=== PATIENT | female | born 1975 | race Two or more races ===

== ENCOUNTER 2017-04-04 18:06 | Emergency (ER) | payer OTHER ==
--- NOTE | 2017-04-04 18:23 | EDPHY ---
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 Also complains of sinus congestion. Patient tells me for the past month she has had pain in her throat specially at night when she goes to sleep in takes a deep breath in she feels the air causing pain to the top of the roof of her mouth as well as throat. She also feels short of breath at times. Denies chest pain. States that she was seen at [facility] for this and diagnosed with allergy she is taking allergy medications but it is not helping. She denies productive cough, fever, chest pain. Denies nausea vomiting. Main reason they brought her to the emergency room is throat pain and sinus congestion. Past Medical History: Arthritis and thyroid disease Past Surgical History: No recent surgical history Social History: Denies daily use of drugs alcohol tobacco products Family History: Noncontributory ROS REVIEW OF SYSTEMS: A comprehensive 10 point review of systems is otherwise negative aside from elements mentioned in the history of present illness. Exam Constitutional triage nursing summary reviewed, vital signs reviewed, awake/ alert. Eyes normal conjunctivae and sclera, EOMI, PERRLA. HENT Posterior pharynx: Mild erythema, uvula midline, no signs of Akash's, no exudate, no significant swelling, refer the mouth normal, soft palate and hard palate normal, moist mucus membranes, no epistaxis, neck supple/ no meningismus, no raccoon eyes. Respiratory clear to auscultation bilaterally, normal breath sounds, no respiratory distress, no wheezing. Cardiovascular rate normal, regular rhythm, no murmur, no edema, distal pulses normal. Gastrointestinal soft, non-tender, no rebound, no guarding, normal bowel sounds, no distension, no pulsatile mass. Genitourinary no CVA tenderness. Musculoskeletal no midline vertebral tenderness, full range of motion, no calf swelling, no tenderness of extremities, no meningismus, good pulses, neurovascularly intact. Skin pink, warm, & dry, no rash, skin atraumatic. Neurologic awake, alert and oriented x 3, AAOx3, moves all 4 extremities equally, motor intact, sensory intact, CN II-XII intact, normal cerebellar, normal vision, normal speech. Psychiatric normal mood/affect. Heme/Lymph/Immune no lymphadenopathy. Differential Diagnosis: Includes but is not limited to in a particular order, seasonal allergies, sinusitis, pneumonia, strep pharyngitis Medical Decision Making: plan for patient two view chest x-ray to rule out pneumonia, EKG, strep swab. Re-evaluation: 1826: patient tells me she takes Ivana as well as a nasal spray for allergies. Rapid strep negative. 1847: Patient resting comfortably no acute distress. EKG are unremarkable. Strep test negative. Symptoms are most likely consistent with pharyngitis and seasonal allergies. Chest x-ray pending at this time. ED x-ray chest two view: negative for acute cardiopulmonary disease. 190: re-evaluation at this time this patient appears well nontoxic no acute distress. Went over EKG, chest x-ray and strep test with patient. Unremarkable. Most likely seasonal allergies versus pharyngitis. Will place patient on prednisone for 5 days as well as Z-Joshua. See if this improves her nasal congestion and sinus congestion. Recommend follow up primary care doctor. Source: Patient, Family - Medical/Surgical History Other PMH: denies - Social History Smoking Status: Never smoked Constitutional: Initial Vital Signs Temperature (C) 36.4 C 04/04/17 18:20 Heart Rate 75 04/04/17 18:20 Respiratory Rate 16 04/04/17 18:20 Blood Pressure 134/83 H 04/04/17 18:20 O2 Sat (%) 96 04/04/17 18:20 O2 Delivery Mode Room Air Allergies/Adverse Reactions: No Known Allergies Allergy (Verified 04/04/17 18:36) Home Medications: Medication Instructions Recorded THYROID 30 mg PO 12/15/12 Humira 08/22/16 AZITHROMYCIN [Z-PACK] 250 mg PO DAILY #6 tab 04/04/17 predniSONE 60 mg PO DAILY #15 tab 04/04/17 Medical Decision Making - Data Points Laboratory Results: 04/04/17 04/04/17 Unknown 16:30 Group A Strep Screen NEGATIVE (NEGATIVE) Group A Strep DNA Pending Departure - Departure Disposition: Home, Routine, Self-Care Clinical Impression: Pharyngitis Qualifiers: Pharyngitis/tonsillitis etiology: unspecified etiology Qualified Code(s): J02.9 - Acute pharyngitis, unspecified Seasonal allergies Qualifiers: Allergic rhinitis trigger: unspecified Qualified Code(s): J30.2 - Other seasonal allergic rhinitis Sinusitis Qualifiers: Sinusitis location: maxillary Chronicity: acute Recurrence: non-recurrent Qualified Code(s): J01.00 - Acute maxillary sinusitis, unspecified Condition: Good Instructions: Sinusitis (ED), Pharyngitis (ED), Allergies (ED) Additional Instructions: 1. I do recommend he follow up with her primary care doctor. 2. Return emergency room if any worsening symptoms questions or concerns. Referrals: SUKHWINDER MYLES,. [Primary Care Provider] - As per Instructions Prescriptions: AZITHROMYCIN [Z-PACK] 250 mg PO DAILY #6 tab predniSONE 60 mg PO DAILY #15 tab
--- NOTE | 2017-04-04 18:29 | CPEKG ---
Heart Rate: 72 RR Interval: 833 P-R Interval: 160 QRSD Interval: 80 QT Interval: 388 QTC Interval: 425 P [place]: 17 QRS [place]: 18 T Wave [place]: 32 EKG Severity - NORMAL ECG - EKG Impression: SINUS RHYTHM Electronically Signed By: Georgette Leon 06-Apr-2017 10:06:28
[2017-04-04 18:41] VITALS: RESP 16; TEMP 97.5; O2SAT 96
[2017-04-04 19:26] VITALS: BP 135/87; PULSE 68
== END 2017-04-04 19:28 | disposition home or self-care (01) ==
LOC: CED 18:06
DX: J01.00 Acute maxillary sinusitis, unspecified (principal); J30.2 Other seasonal allergic rhinitis
CPT/HCPCS: 71020-PO; 87880-PO